=== PATIENT | male | born 1980 | race Caucasian/White ===

== ENCOUNTER 2017-06-17 19:07 | Emergency (ER) | payer OTHER ==
[~2017-06-17] VITALS: Ht 190.5 cm; Wt 118.0 kg
[~2017-06-17 19:07] MED LIST: CHOL100012 PO; HYDR1TAB12 PO; OMEG-14 PO; TRAZ100T15 PO; VENL150C PO
[2017-06-17] MEDS ORDERED: KETOROLAC 30 MG/1 ML ONE (19:43)
[2017-06-17] MEDS ORDERED: DIPHENHYDRAMINE 50 MG/ML, 1ML ONE (19:43)
[2017-06-17] MEDS ORDERED: METOCLOPRAMIDE 5 MG/ML, 2ML ONE (19:43)
[2017-06-17 19:50] LABS: HEMATOCRIT 43.8 % (39.2-51.8); HEMOGLOBIN 14.8 g/dL (13.7-18.0); WHITE BLOOD COUNT 6.9 x10^3/uL (3.4-10)
[2017-06-17] MEDS ORDERED: SODIUM CHLORIDE 0.9% 1,000ML IVBOLUS ONE (20:00)
[2017-06-17] MEDS ORDERED: DIPHENHYDRAMINE 50 MG/ML, 1ML IVPush ONE (20:00)
[2017-06-17] MEDS ORDERED: SODIUM CHLORIDE FLUSH 10ML SYR IVF ONE (20:00)
[2017-06-17] MEDS ORDERED: KETOROLAC 30 MG/1 ML IVPush ONE (20:00)
[2017-06-17] MEDS ORDERED: METOCLOPRAMIDE 5 MG/ML, 2ML IVPush ONE (20:00)
[2017-06-17 20:02] LABS: ASPARTATE AMINO TRANSFERASE 25 U/L (15-37); BLOOD UREA NITROGEN 20 mg/dL (7-18)
[2017-06-17 22:33] VITALS: BP 116/81
== END 2017-06-17 22:35 | disposition home or self-care (01) ==
LOC: ED 21:00
DX: J02.9 Acute pharyngitis, unspecified (principal); G43.909 Migraine, unspecified, not intractable, without status migrainosus; R10.84 Generalized abdominal pain; R19.7 Diarrhea, unspecified
CPT/HCPCS: 36415; 80053; 83690; 85025; 96361; 96374; 96375; 99285; J1200; J1885; J2765; J7030